=== PATIENT | male | born 1955 | race Caucasian/White ===

== ENCOUNTER → 2017-04-01 | Outpatient (CLI) | payer BC ==
[~2017-04-01] MED LIST: ACYC-57 PO; AMLO2.5T PO; ATEN50TA8 PO; CYCL25CA5 PO; FURO-85 PO; LEVO112T2 PO; LISI-461 PO; MULT-506 PO; PSEU30TA3 PO
== END | disposition home or self-care (01) ==
LOC: C.CPL 09:35
PROVIDERS: ATTEND Surgery
DX: K40.90 Unilateral inguinal hernia, without obstruction or gangrene, not specified as recurrent (principal)

== ENCOUNTER → 2017-04-23 | Day surgery (SDC) | payer BC, OTHER ==
[2017-03-15 08:04] VITALS: Ht 172.7 cm; Wt 63.6 kg
[~2017-04-23] VITALS: Ht 172.7 cm; Wt 63.6 kg
[~2017-04-23] MED LIST changes: +ALLO100T PO; +ATROPINE SULFATE 0.1 MG/ML 5ML SYR IV PRN; +BUPIVACAINE 0.5 % 5 MG/1 ML MPF 30ML VIAL ONE; +CEFAZOLIN 2000MG IV PUSH 10 ML IV SCH; +CEFAZOLIN SOD 1 GM VIAL ONE; +CEPH500C2 PO; +FENTANYL CITRATE INJ 50 MCG/1 ML 2 ML VIAL IV PRN; +FENTANYL CITRATE INJ 50 MCG/1 ML 2 ML VIAL ONE; +HYDR-5688 PO; +HYDROCODONE/ACETAMOPHEN 5/325MG TAB PO PRN; +KETOROLAC TROMETHAMINE 30 MG/ML VIAL IV. PRN; +LABETALOL HCL IV 5 MG/ML 20ML IV PRN; +LACTATED RINGER'S 1000ML 1,000 ML IV SCH; +LIDOCAINE HCL 2% 2 ML VIAL (20MG/ML) ONE; +MIDAZOLAM HCL 1 MG/ML 2ML VIAL ONE; +ONDANSETRON INJ 2 MG/ML 2 ML VIAL IV PRN; +ONDANSETRON INJ 2 MG/ML 2 ML VIAL ONE; +PROPOFOL IV EMULSION 10 MG/ML 20 ML VIAL IV ONE; +SODIUM CHLORIDE 0.9% 1000ML 1,000 ML IV SCH; +SODIUM CHLORIDE 0.9% INJ 10 ML VIAL ONE
--- NOTE | 2017-04-23 06:54 | History & Physical Bridge - [place] ---
H&P Re-Evaluation Bridge Note: I have examined the patient, reviewed the History & Physical and in the interval since the performance of the History & Physical I have noted the following changes of clinical significance: No changes noted
--- NOTE | 2017-04-23 07:48 | [facility] Operative Report ---
Operative Report Operative Date Apr 23, 2017. Pre-Operative Diagnosis Left Inguinal Hernia Post-Operative Diagnosis Same Procedure(s) Performed Left Inguinal Hernia Open Repair Surgeon Dr. Estrada Tong Carrier Surgeon(s) None Estimated Blood Loss 5 ML Findings direct defect Specimens None Anesthesia gen/LMA Complication(s) None Disposition Recovery Room / PACU I attest to the content of the Intraoperative Record and any orders documented therein. Any exceptions are noted below.
--- NOTE | 2017-04-23 07:56 | Discharge Instructions-SurgCtr ---
Discharge Instructions Date of Service Apr 23, 2017. Visit Reason for Visit: Left Inguinal Hernia Discharge Discharge Diagnosis / Problem: Lt inguinal hernia Discharge Goals Goal(s): Decrease discomfort, Improve function, Improve disease control Activity Recommendations Activity Limitations: as noted below Lifting Limitations: no more than 25 pounds (for 4 weeks) Exercise/Sports Limitations: until after follow-up appointment May Resume Sexual Activity: when tolerated Shower/Bathe: keep incision dry (may shower over incision in 2 days- 04/25) Driving or Machine Use: 5 days Anesthesia . Post Anesthesia Instructions: If you have had General Anesthesia or IV Sedation: * Do not drive today. * Resume driving when surgeon permits. * Do not make important decisions or sign legal documents today. * Call surgeon for: 1. Temperature elevations greater than 101 degrees F. 2. Uncontrollable pain. 3. Excessive bleeding. 4. Persistent nausea and vomiting. 5. Medication intolerance (nausea, vomiting or rash). * For nausea and vomiting use only clear liquids such as: tea, soda, bouillon until nausea subsides, then gradually increase diet as tolerated. * If you have any concerns or questions, call your surgeon's office. If physician is unavailable and it is an emergency, call 911 or go to the nearest emergency room. . Instructions / Follow-Up Instructions / Follow-Up SPECIAL CARE INSTRUCTIONS: * Cover incisions and change daily for comfort/drainage. * Leave steri strips in place * Avoid constipation- may use Senokot S and Milk of magnesia twice daily as directed on the package * May use ibuprofen for pain as tolerated. * Expect some swelling and bruising. Call your doctor if: * Temperature above 101 degrees * Pain not relieved by pain medicine ordered * There is increased drainage or redness from any incision * You have any unanswered questions or concerns [phone]. FOLLOW UP VISIT: If not already scheduled, please call the office for a follow-up visit. for next week- some suture removal OFFICE PHONE NUMBER: Dr. Estrada Office Diet Recommendations Home Diet: resume previous diet Procedures Procedures Performed: Left Inguinal Hernia Open Repair Pending Studies Studies pending at discharge: no Medical Emergencies . Who to Call and When: Medical Emergencies: If at any time you feel your situation is an emergency, please call 911 immediately. . Non-Emergent Contact Non-Emergency issues call your: Primary Care Provider, Surgeon . . "Provider Documentation" section prepared by Leon Estrada. .
--- NOTE | 2017-04-23 08:09 | OPERATIVE REPORT ---
DATE OF OPERATION: 04/23/2017 PREOPERATIVE DIAGNOSIS: Open left inguinal hernia repair with mesh. PREOPERATIVE DIAGNOSIS: Left inguinal hernia. POSTOPERATIVE DIAGNOSIS: Same with direct defect. STAFF SURGEON: Leon Estrada MD. ANESTHESIA: General LMA. DESCRIPTION OF PROCEDURE: The patient was brought in the operating room and placed on the operating table in supine position. His lower abdomen was prepped and draped in usual fashion. 0.5% plain Marcaine was used to anesthetize the skin and subcutaneous tissue. Incision made carrying dissection down identifying the external oblique fibers, incising them along their length to the external ring, identifying the ilioinguinal and iliohypogastric nerves. Cord structures were mobilized. The patient had a direct inguinal hernia which was reduced. Then a mesh plug placed into the defect, secured to surrounding tissue using 2-0 Ethibond suture. Then a mesh patch placed into the floor of the canal over the mesh plug, around the cord structures secured using 2-0 Ethibond suture. The site was irrigated with antibiotic solution and anesthetized using 0.5% plain Marcaine. External oblique fibers closed over the mesh and around the cord structures using 2-0 Ethibond suture. Then the subcutaneous tissue was reapproximated using 2-0 plain catgut suture. Then the skin reapproximated using 4-0 nylon suture and Steri-Strips. Dressing applied and patient transferred to recovery room in stable condition. I attest to the content of the Intraoperative Record and any orders documented therein. Any exception s are noted below.
[2017-04-23 08:32] VITALS: TEMP 36.4
--- NOTE | 2017-04-23 08:43 | Anesthesia Progress Nt - [facility] ---
Anesthesia Post Op Note Date & Time Apr 23, 2017 at 08:43 Vital Signs Pain Intensity: 3 Vital Signs Past 12 Hours Date Time Temp Pulse Resp B/P (MAP) Pulse Ox O2 Delivery O2 Flow Rate FiO2 04/23/17 08:32 36.4 48 16 110/68 (82) 100 Room Air 04/23/17 08:26 120/71 04/23/17 08:22 45 14 04/23/17 08:22 45 14 97 04/23/17 08:21 110/71 04/23/17 08:17 48 11 04/23/17 08:17 48 11 98 04/23/17 08:16 110/66 04/23/17 08:16 36.5 98 Room Air 04/23/17 08:14 47 13 97 04/23/17 08:14 47 13 04/23/17 08:13 48 12 97 04/23/17 08:13 49 12 04/23/17 08:11 110/59 04/23/17 08:11 110/59 04/23/17 08:08 46 14 04/23/17 08:08 45 14 100 04/23/17 08:08 46 14 04/23/17 08:08 45 14 100 04/23/17 08:07 49 16 04/23/17 08:07 48 16 100 04/23/17 08:06 96/64 04/23/17 08:02 49 14 04/23/17 08:02 48 14 99 04/23/17 08:01 105/66 04/23/17 07:58 100/62 04/23/17 07:57 46 96 04/23/17 07:57 46 04/23/17 07:57 36.4 46 12 100/62 97 Mask 6 04/23/17 06:29 36.6 48 20 144/85 (104) 97 Room Air Notes Mental Status: alert / awake / arousable, participated in evaluation Pt Amnestic to Procedure: Yes Nausea / Vomiting: adequately controlled Pain: adequately controlled Airway Patency, RR, SpO2: stable & adequate BP & HR: stable & adequate Hydration State: stable & adequate Anesthetic Complications: no major complications apparent
[2017-04-23 09:16] VITALS: BP 129/81; PULSE 44; O2SAT 99
== END | disposition home or self-care (01) ==
LOC: X.SURG 06:14
PROVIDERS: ATTEND Surgery
DX: K40.90 Unilateral inguinal hernia, without obstruction or gangrene, not specified as recurrent (principal); I12.9 Hypertensive chronic kidney disease with stage 1 through stage 4 chronic kidney disease, or unspecified chronic kidney disease; K21.9 Gastro-esophageal reflux disease without esophagitis; E03.9 Hypothyroidism, unspecified; E78.00 Pure hypercholesterolemia, unspecified; N18.3 Chronic kidney disease, stage 3 (moderate); Z90.89 Acquired absence of other organs; Z98.890 Other specified postprocedural states; Z80.9 Family history of malignant neoplasm, unspecified; Z79.899 Other long term (current) drug therapy